=== PATIENT | female | born 1995 ===

== ENCOUNTER 2017-09-26 17:05 | Emergency (ER) | payer OTHER ==
[2017-09-26 17:11] VITALS: BP 125/77; PULSE 82; RESP 18; TEMP 99; O2SAT 99
--- NOTE | 2017-09-26 17:21 | C.PDOC ---
History Of Present Illness 21 y/o female presents to ED with c/o superficial contusion to occipital area and left shoulder developed after she fell in the bathroom this morning. Patient reports glancing blows and states she worked a full day at work. Patient did not take anything for pain and denies headache, numbness, vision changes or any other complaints at this time. - HPI Time Seen by Provider: 09/26/17 17:13 Chief Complaint (Nursing): Trauma History Per: Patient History/Exam Limitations: no limitations Onset/Duration Of Symptoms: Days Past Medical History Reviewed: Historical Data, Nursing Documentation, Vital Signs Vital Signs: Last Vital Signs Temp 99 F 09/26/17 17:07 Pulse 82 09/26/17 17:07 Resp 18 09/26/17 17:07 BP 125/77 09/26/17 17:07 Pulse Ox 99 09/26/17 17:20 - Medical History PMH: No Chronic Diseases Surgical History: No Surg Hx Family History: States: No Known Family Hx - Social History Hx Alcohol Use: No Hx Substance Use: No Review Of Systems Constitutional: Negative for: Fever, Chills Gastrointestinal: Negative for: Nausea, Vomiting Musculoskeletal: Positive for: Shoulder Pain Skin: Negative for: Rash Neurological: Positive for: Headache. Negative for: Weakness, Numbness Physical Exam - Physical Exam Appears: Non-toxic, No Acute Distress, Other (obese) Skin: Warm, Dry Head: Atraumatic, Normacephalic, No Abrasion Eye(s): bilateral: Normal Inspection Oral Mucosa: Moist Neck: Normal ROM, Supple Cardiovascular: Rhythm Regular Respiratory: Normal Breath Sounds, No Rales, No Rhonchi, No Wheezing Extremity: Normal ROM, Capillary Refill (<2 seconds), No Deformity Neurological/Psych: Oriented x3, Normal Speech ED Course And Treatment O2 Sat by Pulse Oximetry: 99 (RA) Pulse Ox Interpretation: Normal Medical Decision Making Medical Decision Making: superficial contusion to occiput and L shoulder no abnormal physical nor neuro findings playful, smiling, no LYONS defer radiologically studies with informed consent. Disposition Doctor Will See Patient In The: Office Counseled Patient/Family Regarding: Studies Performed, Diagnosis - Disposition Referrals: Deanne Oliver MD [Medical Doctor] - Disposition: HOME/ ROUTINE Disposition Time: 17:20 Condition: GOOD Additional Instructions: sigue ibuprofeno 400-600 mg cada 6 horas babs necessario [place] de h[place]o en las areas dolorosos 1/2 hora cada hora, nada caliente. Sigue con nelson medico babs necessario. Instructions: Contusion (DC), Minor Head Injury (DC) Forms: [email or web address] ([place]) Print Language: ECUADOREAN - Clinical Impression Clinical Impression: Contusion, Head contusion - Scribe Statement The provider has reviewed the documentation as recorded by the Scribstephen Palomino All medical record entries made by the Scribe were at my direction and personally dictated by me. I have reviewed the chart and agree that the record accurately reflects my personal performance of the history, physical exam, medical decision making, and the department course for this patient. I have also personally directed, reviewed, and agree with the discharge instructions and disposition.
== END 2017-09-26 17:36 | disposition home or self-care (01) ==
LOC: C.ER 17:05
DX: S00.03XA Contusion of scalp, initial encounter (principal); W18.2XXA Fall in (into) shower or empty bathtub, initial encounter; Y93.E1 Activity, personal bathing and showering; Y92.002 Bathroom of unspecified non-institutional (private) residence as the place of occurrence of the external cause

== ENCOUNTER 2017-11-29 16:36 | Emergency (ER) | payer OTHER ==
[2017-11-29 16:46] VITALS: BP 122/85; TEMP 98.3
[2017-11-29] MEDS ORDERED: Naproxen 550 mg Tab PO STA (17:09)
--- NOTE | 2017-11-29 17:11 | C.PDOC ---
History Of Present Illness 22 year old female patient presents to the ER with c/o left wrist pain for x2 weeks. Patient reports pain is worse with certain movements. 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 Patient is left hand dominant. Patient denies trauma, change in sensation, weakness and numbness. Time Seen by Provider: 11/29/17 16:48 Chief Complaint (Nursing): Finger,Hand,&Wrist History Per: Patient History/Exam Limitations: no limitations Onset/Duration Of Symptoms: Days (x2 weeks) Current Symptoms Are (Timing): Still Present Past Medical History Reviewed: Historical Data, Nursing Documentation, Vital Signs Vital Signs: Last Vital Signs Temp 98.3 F 11/29/17 16:42 Pulse 89 11/29/17 16:42 Resp 18 11/29/17 16:42 BP 122/85 11/29/17 16:42 Pulse Ox 98 11/29/17 18:52 Family History: States: No Known Family Hx - Social History Hx Alcohol Use: No Hx Substance Use: No Review Of Systems Constitutional: Negative for: Other (trauma; change in sensation ) Musculoskeletal: Positive for: Hand Pain (left wrist ) Neurological: Negative for: Weakness, Numbness Physical Exam - Physical Exam Appears: Non-toxic, No Acute Distress Skin: Normal Color, Warm, Dry Head: Atraumatic, Normacephalic Eye(s): bilateral: Normal Inspection, EOMI Nose: Normal Oral Mucosa: Moist Neck: Normal ROM, Supple Chest: Symmetrical Respiratory: No Accessory Muscle Use, Other (speaking in full sentences) Extremity: Normal ROM, Tenderness (dorsal aspect of wrist ), Capillary Refill (< 2 sec), No Swelling, Other ((+) tinels test ) Pulses: Left Radial: Normal, Right Radial: Normal Neurological/Psych: Oriented x3, Normal Speech, No Other (focal deficits) ED Course And Treatment O2 Sat by Pulse Oximetry: 98 (RA) Pulse Ox Interpretation: Normal Progress Note: Plans: -- Anaprox. Reassess: Patient is resting comfortably. Wrist immobilizer applied by facility maintenance technician. Patient remains stable and is advised to f /u with hand specialist in 1-2 days. Disposition - Disposition Referrals: Rosangela Grullon MD [Staff Provider] - Disposition: HOME/ ROUTINE Disposition Time: 17:10 Condition: STABLE Additional Instructions: Rest, ice and elevate the area. Follow up with hand specialist in 1-2 days. Prescriptions: Naproxen [Naprosyn] 1 tab PO BID PRN #20 tab PRN Reason: Pain Instructions: Carpal Tunnel Syndrome (DC) Forms: [employer] ([place]an) Print Language: JAMAICAN - Clinical Impression Clinical Impression: Left wrist tendonitis - PA / ASSET SPECIALIST / Resident Statement / has reviewed & agrees with the documentation as recorded. - Scribe Statement The provider has reviewed the documentation as recorded by the Joshua Cho Do All medical record entries made by the Scribe were at my direction and personally dictated by me. I have reviewed the chart and agree that the record accurately reflects my personal performance of the history, physical exam, medical decision making, and the department course for this patient. I have also personally directed, reviewed, and agree with the discharge instructions and disposition.
[2017-11-29 17:17] VITALS: PULSE 89; RESP 18
[2017-11-29] MEDS ORDERED: Naproxen 550 mg Tab PO ONE (17:30)
[2017-11-29 18:52] VITALS: O2SAT 98
== END 2017-11-29 17:37 | disposition home or self-care (01) ==
LOC: C.ER 16:36
DX: M77.8 Other enthesopathies, not elsewhere classified (principal)

== ENCOUNTER 2018-02-09 15:02 | Emergency (ER) | payer OTHER ==
[2018-02-09 15:12] VITALS: O2SAT 100
--- NOTE | 2018-02-09 15:56 | C.PDOC ---
History Of Present Illness 22 y/o female, w/no significant PMhx, presents to the ER complaining neck pain which has been present for the past 1 day. Patient states that she was performing a stretching maneuver when she felt a sharp pain on the right side of her neck. Patient reports that she was not able to move her head for a few minutes. She notes that she took Motrin yesterday without relief. She is currently having pain with rotation and lateral flexion of the neck. Denies having headache, visual changes, dizziness, fever, chills, chest pain, palpita tions, diaphoresis, thoracic/ lumbar back pain, weakness, numbness, and parasthesias. Chief Complaint (Nursing): Back Pain History Per: Patient History/Exam Limitations: no limitations Onset/Duration Of Symptoms: Days Current Symptoms Are (Timing): Still Present Severity: Moderate Past Medical History Reviewed: Historical Data, Nursing Documentation, Vital Signs Vital Signs: Last Vital Signs Temp 98.5 F 02/09/18 15:07 Pulse 88 02/09/18 15:07 Resp 17 02/09/18 15:07 BP 129/87 02/09/18 15:07 Pulse Ox 100 02/09/18 15:07 - Medical History PMH: No Chronic Diseases Surgical History: No Surg Hx Family History: States: No Known Family Hx - Social History Hx Alcohol Use: No Hx Substance Use: No - Immunization History Hx Tetanus Toxoid Vaccination: No Hx Influenza Vaccination: No Hx Pneumococcal Vaccination: No Review Of Systems Except As Marked, All Systems Reviewed And Found Negative. Constitutional: Negative for: Fever, Chills Eyes: Negative for: Vision Change Cardiovascular: Negative for: Chest Pain, Palpitations Respiratory: Negative for: Cough, Shortness of Breath Gastrointestinal: Negative for: Nausea, Vomiting, Abdominal Pain Musculoskeletal: Positive for: Neck Pain. Negative for: Shoulder Pain, Arm Pain, Back Pain Skin: Negative for: Rash, Bruising Neurological: Negative for: Weakness, Numbness, Headache, Dizziness Physical Exam - Physical Exam Appears: Well, Non-toxic, No Acute Distress (although uncomfortable, head tilted to right, chin to left slightly) Skin: Normal Color, Warm, Dry Head: Atraumatic, Normacephalic, No Tenderness Eye(s): bilateral: Normal Inspection, PERRL, EOMI Ear(s): Bilateral: Normal Nose: Normal Oral Mucosa: Moist Neck: Decreased ROM (pain with rotation to thr right side and lateral flexion), Trachea Midline, No Midline Cervical Tenderness, Paracervical Tenderness (paraspinal tenderness and tenderness over right trapezius), Supple, Other (When pt turns head to the right, has sudden onset of sharp pain suspicious of muscle spasm) Lymphatic: Normal Exam, No Adenopathy Chest: Symmetrical Cardiovascular: Rhythm Regular Respiratory: Normal Breath Sounds, No Rales, No Rhonchi, No Wheezing Back: Normal Inspection, No Decreased ROM, No Muscle Spasm, No Paraspinal Tenderness Extremity: Normal ROM, No Tenderness, Capillary Refill (<2s), No Deformity, No Swelling Extremity: Bilateral: Atraumatic, No Pedal Edema, Normal Color And Temperature, Normal ROM Pulses: Left Radial: Normal, Right Radial: Normal Neurological/Psych: Oriented x3, Normal Speech, Normal Cognition, Normal Cranial Nerves, Normal Motor, Normal Sensation Gait: Steady ED Course And Treatment O2 Sat by Pulse Oximetry: 100 (RA) Pulse Ox Interpretation: Normal Medical Decision Making Medical Decision Making: Plan: --R-Nma-Beoidwza Spine --Valium PO --Toradol IM --Lidoderm Patch Patient reports decreased pain after medications. Cervical Spine XR: Normal, No fracture or dislocation Plan of care discussed with patient, and strict instructions given regarding prescriptions, importance of follow up, and signs to return to Emergency Depa rtment, to include fevers, chills, SOB, chest pain, weakness, numbness or any other new/worsening symptoms. Patient verbalizes understanding of discussion. Patient A&Ox3, ambulating with steady gait, stable for discharge home. Impression: Muscle Spasm, Torticollis Plan: * Lidoderm Patches * Flexeril * Followup with primary doctor/clinic within 2 days * Return to ER for new/worsening symptoms Disposition - Disposition Referrals: [facility] [Outside] Jim Riggs III, MD [Staff Provider] - Disposition: HOME/ ROUTINE Disposition Time: 16:00 Condition: IMPROVED Additional Instructions: Increase fluids Take ibuprofen every 6-8 hours with food as needed for pain Take flexeril every 8 hours as needed for muscle spasm Use lidoderm patches 12 hours on, 12 hours off as needed Followup with primary doctor or clinic within 2 days Return to ER for new/worsening symptoms Prescriptions: Cyclobenzaprine [Flexeril] 5 mg PO Q8H PRN #15 tab PRN Reason: Muscle Spasm Ibuprofen [Motrin Tab] 600 mg PO Q8H PRN #30 tab PRN Reason: Pain, Moderate (4-7) Lidocaine 5% [Lidoderm] 1 ea TD Q12H PRN #10 patch PRN Reason: Pain, Moderate (4-7) Instructions: Torticollis, Adult, Neck Stretches Forms: General Discharge Instructions, [facility] (Lao), School Excuse, Work Excuse - Clinical Impression Clinical Impression: Muscle spasm - PA / GALLERY OR MUSEUM TECHNICIAN / Resident Statement MD/DO has reviewed & agrees with the documentation as recorded. - Scribe Statement The provider has reviewed the documentation as recorded by the Joshua Tineo Provider Attestation All medical record entries made by the Jessicaibstephen were at my direction and personally dictated by me. I have reviewed the chart and agree that the record accurately reflects my personal performance of the history, physical exam, medical decision making, and the department course for this patient. I have also personally directed, reviewed, and agree with the discharge instructions and disposition.
[2018-02-09] MEDS ORDERED: Lidocaine 5% Patch TD STA (16:33)
[2018-02-09] MEDS ORDERED: Lidocaine 5% Patch TD ONE (16:43)
[2018-02-09 16:47] VITALS: BP 108/75; PULSE 93; RESP 18; TEMP 98.3
--- NOTE | 2018-02-09 17:03 | RAD ---
Date of service: 02/09/2018 PROCEDURE: Cervical Spine Radiographs. HISTORY: Pain. COMPARISON: None available. FINDINGS: BONES: Alignment maintained. No fracture. Dens Intact. DISC SPACES: Normal. SOFT TISSUES: Normal. No prevertebral soft tissue swelling. OTHER FINDINGS: None. IMPRESSION: Normal cervical spine radiographs
== END 2018-02-09 16:50 | disposition home or self-care (01) ==
LOC: C.ER 15:02
DX: M62.838 Other muscle spasm (principal)
CPT/HCPCS: 72040; 96372; 99284; J1885